=== PATIENT | male | born 1960 | race Caucasian/White ===

== ENCOUNTER 2018-12-23 04:39 | Emergency (ER) | payer OTHER ==
[~2018-12-23] VITALS: Ht 180.3 cm; Wt 136.1 kg
[~2018-12-23 04:39] MED LIST: DIOVAN HCT 3201 EAC1 PO; DIOVAN320 MG PO; HYDROCHLOROTHIA25 M2 PO; LEVAQUIN 500 M500 M2 PO; LEVOTHYROXIN0.075 MG PO; PREDNISONE 10 M10 MG PO; PROTONIX40 M1 PO
[2018-12-23] MEDS ORDERED: CENTRUM SILVER1 EAC2 (05:03)
[2018-12-23 05:07] LABS: ABSOLUTE BASOPHILS 0.1 thou/uL (0.0-0.2); ABSOLUTE EOSINOPHILS 0.2 thou/uL (0.0-0.7); ABSOLUTE LYMPHOCYTES 1.1 thou/uL (0.8-5.3); ABSOLUTE MONOCYTES 0.6 thou/uL (0.0-1.2); ABSOLUTE NEUTROPHILS 4.8 thou/uL (1.6-8.1); BASOPHILS 0.9 %; EOSINOPHILS 2.3 %; HEMATOCRIT 49.3 % (42.0-52.0); HEMOGLOBIN 16.5 gm/dL (14.0-18.0); LYMPHOCYTES 16.9 %; MCHC 33.4 g/dL (28.0-37.0); MCV 98.7 fL (80.0-100.0); MONOCYTES 8.5 %; MPV 8.2 fl. (7.2-11.1); NUCLEATED RBCS 0 /100WBC; PLATELET COUNT* 197 thou/uL (150-400); POLYS 71.4 %; RBC 4.99 mil/uL (4.50-6.00); RDW-CV 14.6 % (10.5-14.5); WBC 6.8 thou/uL (4.0-11.0)
[2018-12-23 05:20] LABS: INR 1.2; PROTIME 12.4 Seconds (9.20-11.50)
[2018-12-23 05:45] LABS: ABSOLUTE BASOPHILS 0.1 thou/uL (0.0-0.2); ABSOLUTE EOSINOPHILS 0.1 thou/uL (0.0-0.7); ABSOLUTE LYMPHOCYTES 1.1 thou/uL (0.8-5.3); ABSOLUTE MONOCYTES 0.6 thou/uL (0.0-1.2); ABSOLUTE NEUTROPHILS 4.9 thou/uL (1.6-8.1); HEMATOCRIT 47.6 % (42.0-52.0); HEMOGLOBIN 15.8 gm/dL (14.0-18.0); LYMPHOCYTES 16.5 %; MCH 32.6 pg (26.0-34.0); MCHC 33.2 g/dL (28.0-37.0); MCV 98.2 fL (80.0-100.0); MONOCYTES 8.4 %; MPV 7.7 fl. (7.2-11.1); NUCLEATED RBCS 0 /100WBC; PLATELET COUNT* 193 thou/uL (150-400); POLYS 72.1 %; RBC 4.85 mil/uL (4.50-6.00); RDW-CV 14.5 % (10.5-14.5); WBC 6.8 thou/uL (4.0-11.0)
[2018-12-23 06:04] LABS: ALBUMIN 3.4 g/dL (3.4-5.0); ALKALINE PHOSPHATASE 65 U/L (46-116); ANION GAP 6 mmol/L (7-16); BUN 23 mg/dL (7-18); CALCIUM 9.2 mg/dL (8.5-10.1); CHLORIDE 103 mmol/L (98-107); CO2 31 mmol/L (21-32); CREATININE 0.9 mg/dL (0.6-1.3); GLUCOSE 129 mg/dL (70-99); LIPASE 112 U/L (73-393); NT-PRO BRAIN NAT PEPTIDE 40 pg/mL (<300); SGOT 18 U/L (15-37); SGPT 37 U/L (30-65); SODIUM 140 mmol/L (136-145); TOTAL BILIRUBIN 0.3 mg/dL (<0.1-1.0); TOTAL PROTEIN 6.7 g/dL (6.4-8.2); TROPONIN-I LEVEL <0.06 ng/mL (<0.06)
[2018-12-23 06:52] LABS: INR 1.2; PROTIME 11.8 Seconds (9.20-11.50)
[2018-12-23] MEDS ORDERED: VENTOLIN HFA 1818 GM INH (08:49)
[2018-12-23] MEDS ORDERED: ZPAK PO (08:49)
[2018-12-23] MEDS ORDERED: PREDNISONE50 MG PO (08:49)
[2018-12-23 09:19] VITALS: BP 134/78
--- NOTE | 2018-12-23 12:02 | EKG ---
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: : 1960 Requested By: Elham Pastor Order Number: [id number] MD: Alo Ro Measurements Intervals [place] Rate: 73 P: 66 PA: 191 QRS: 21 QRSD: 144 T: 41 QT: 414 QTc: 457 Interpretive Statements Sinus rhythm Ventricular premature complex Right bundle branch block Artifact in lead(s) I,II,aVR,aVL,aVF,V4,V5 Compared to ECG 11/19/2015 10:12:58 Ventricular premature complex(es) now present Electronically Signed On 12-23-2018 12:02:03 BLIND STITCH MACHINE OPERATOR by Alo Ro [email or web address] <ELECTRONICALLY SIGNED> By: Alo Ro MD, [facility] 12/23/18 [id number] Alo Ro MD, [facility] /EPI
--- NOTE | 2018-12-24 14:08 | EKG ---
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: KAREN : 1960 Requested By: Josesito Hernandez Order Number: [id number] MD: Alo Ro Measurements Intervals [place] Rate: 68 P: 48 [place]: 195 QRS: 42 QRSD: 131 T: 30 QT: 426 QTc: 454 Interpretive Statements Sinus rhythm Right bundle branch block Borderline ST elevation, lateral leads Baseline wander in lead(s) V6 Compared to ECG 12/23/2018 04:42:35 ST (T wave) deviation now present Ventricular premature complex(es) no longer present Electronically Signed On 12-24-2018 14:08:20 ROD HANGER by Alo Ro [email or web address] <ELECTRONICALLY SIGNED> By: Alo Ro MD, [facility] 12/24/18 [id number] Alo Ro MD, [facility] /EPI
== END 2018-12-23 09:20 | disposition home or self-care (01) ==
LOC: M.ERS 04:39
PROVIDERS: Personal Emergency Response Attendant
DX: R07.89 Other chest pain (principal); I10 Essential (primary) hypertension; I48.91 Unspecified atrial fibrillation; E03.9 Hypothyroidism, unspecified; F17.210 Nicotine dependence, cigarettes, uncomplicated